=== PATIENT | female | born 1970 | race Caucasian/White ===

== ENCOUNTER → 2023-12-12 14:19 | Outpatient (REF) | payer OTHER, SELFPAY | LOC: REG 14:19 | PROVIDERS: ATTENDING PHYSICIAN Student in an Organized Health Care Education/Training Program | DX: J18.9 Pneumonia, unspecified organism (principal) | CPT/HCPCS: 71046 ==

== ENCOUNTER → 2024-04-22 16:42 | Outpatient (REF) | payer OTHER, SELFPAY | LOC: WDC 16:42 | PROVIDERS: ATTENDING PHYSICIAN Nurse Practitioner Family; FAMILY PHYSICIAN Student in an Organized Health Care Education/Training Program | DX: Z12.31 Encounter for screening mammogram for malignant neoplasm of breast (principal) | CPT/HCPCS: 77063; 77067 ==

== ENCOUNTER 2024-07-03 15:43 | Emergency (ER) | payer OTHER, SELFPAY ==
[2024-07-03 15:46] VITALS: BP 173/108
--- NOTE | 2024-07-03 15:46 | ED.GENMED ---
ED Provider Triage
<Pat Blake PA-C - Last Filed: 07/03/24 15:55>
-
Patient seen by provider in Triage?: Seen in Triage
Attestation: A medical screening examination has been initiated by a qualified medical provider. Based on the assessment performed at this time, it has been determined that an emergent medical condition may exist and the patient has been informed
that further medical evaluation and possible additional diagnostic testing may be needed.
HPI: 53yoF here with elevated BP reading at home. Usually takes losartan only as needed. Has not taken her BP meds in 8 months. 165/95 at work today. C/o MURO. Called PCP today who told her to go to the ED. No CP/SOB.
GENERAL: Alert , in no apparent distress
EYE: No visual abnormalities.
NECK: Trachea midline
ENT: No visible abnormalities.
LUNGS: No acute respiratory distress
NEUROLOGICAL: Alert and oriented
SKIN: Skin intact. No visible changes.
MUSCULOSKELETAL: Moving extremities normally
PSYCH: Normal and appropriate interaction.
This is a medical evaluation conducted in person to initiate diagnostic evaluation and provide initial therapeutics. Please see further documentation by the treating clinician.
BP 173/108 in triage. Patient refusing blood work stating she is only here for a medication refill. Will order dose of home medication.
History of Present Illness
<Pat Blake PA-C - Last Filed: 07/03/24 15:55>
General
Chief Complaint: Prescription Refill
Time Seen by Provider: 07/03/24 16:44
<JULITA Whitten - Last Filed: 07/03/24 18:20>
General
Source: patient
Exam Limitations: none
Nursing documentation reviewed up to this point in time: agreed with
History of Present Illness
History of Present Illness:
53 yr old female presents to the ED for evaluation. Patient has a history of high blood pressure however has not taken her blood pressure medication in 8 months. Previously she was prescribed losartan 12.5 mg however over the past several days she
has had high blood pressure (she checked herself ) and headache. She called her family doctor did a refill but they would not see her because she complained of a headache and they recommended she come to the ER. She has felt slightly dizzy with a
headache. She denies any chest pain shortness of breath. She did have 2 tablets of losartan and 1 on Sunday 1 on Sunday.
Patient was given losartan 12.5 mg prior to my exam.
Past History
<Pat Blake PA-C - Last Filed: 07/03/24 15:55>
Past History
ED Past Medical History: HTN, Other (Breast cancer) and Other (Breast cancer status post recent lumpectomy, ovarian cysts)
ED Past Surgical History: Other (Lumpectomy, double hernia surgery, LEEP)
Social History
Tobacco: Non-smoker
Alcohol: None
Personal:
Living: with family
Employment: Employed
Family History
Family History: Negative Diabetes, Hypertension or CAD
Review of Systems
<JULITA Whitten - Last Filed: 07/03/24 18:20>
Review of Systems
Allergies reviewed?: Yes
All Other Systems: ROS reviewed and negative except as documented in HPI and ROS
Constitutional: Reports no symptoms
Respiratory: Reports no symptoms
Cardiac: Reports no symptoms
ABD/GI: Reports no symptoms; Denies nausea or vomiting
Musculoskeletal: Reports no symptoms
Skin: Reports no symptoms
Neurological: Reports headache
Psychiatric: Reports no symptoms
Phy Exam
<JULITA Whitten - Last Filed: 07/03/24 18:20>
General Physical Exam
General Presentation: no apparent distress
General age: appears stated age
General Skin: warm and dry
General Habitus: normal
General Mental: alert
General Hydration: appears well hydrated
Eye Exam
Eye Exam: PERRL and EOMI
Cardiovascular Exam
Cardiovascular Exam: regular rate/rhythm, no murmur and normal peripheral pulses
Pulmonary Exam
Pulmonary Exam: lungs clear and no respiratory distress
Neurological Exam
Neurological Exam: alert and oriented x3
Musculoskeletal Exam
Musculoskeletal Exam: full ROM
Skin Exam
Skin Exam: normal color and warm/dry
Psychiatric Exam
Psychiatric Exam: normal mood/affect
Course
<Pat Blake PA-C - Last Filed: 07/03/24 15:55>
Orders/Labs/Results
Orders:
Orders
07/03/24 15:51
Losartan [Cozaar] 12.5 mg PO NOW STA
07/03/24 17:24
CT Head W/o Iv Contrast Urgent
Comment:
Reason For Exam: headache /elevated blood pressure
Vital Signs
Initial and Last Documented VS:
Initial Vital Signs
Temp Pulse Resp BP Pulse Ox
98.2 F 73 18 173/108 100
07/03/24 15:46 07/03/24 15:46 07/03/24 15:46 07/03/24 15:46 07/03/24 15:46
Last Documented Vital Signs
Temp Pulse Resp BP Pulse Ox
98.2 F 67 18 177/101 99
07/03/24 15:46 07/03/24 16:28 07/03/24 16:28 07/03/24 16:28 07/03/24 16:28
<JULITA Whitten - Last Filed: 07/03/24 18:20>
Orders/Labs/Results
Orders:
Orders
07/03/24 15:51
Losartan [Cozaar] 12.5 mg PO NOW STA
07/03/24 17:24
CT Head W/o Iv Contrast Urgent
Comment:
Reason For Exam: headache /elevated blood pressure
Vital Signs
Initial and Last Documented VS:
Initial Vital Signs
Temp Pulse Resp BP Pulse Ox
98.2 F 73 18 173/108 100
07/03/24 15:46 07/03/24 15:46 07/03/24 15:46 07/03/24 15:46 07/03/24 15:46
Last Documented Vital Signs
Temp Pulse Resp BP Pulse Ox
98.2 F 67 18 177/101 99
07/03/24 15:46 07/03/24 16:28 07/03/24 16:28 07/03/24 16:28 07/03/24 16:28
<JULITA Whitten - Last Filed: 07/03/24 18:20>
MDM/Problems Addressed
Differential Diagnosis Includes:
not limited to: htn less likely intracranial hemorrhage, headache
MDM/Problems Addressed:
Patient is a 53-year-old female that was sent to the ER for evaluation. Patient has a history of high blood pressure however has not taken her losartan in the past 8 months. Over the past several days her blood pressures been high. She took a
dose Sunday and Sunday called her primary care physician and requested a prescription/refill for her losartan but because she complained of a headache they sent her here to the ER.
She has had a headache for the past several days with elevated blood pressure. She denies any chest pain shortness of breath. She is nontoxic with a normal neurologic exam.
I did speak with the nurse at her primary care office who sent her in.
Patient declines blood work I did recommend checking her blood work for her renal function but she reports she just had blood work done at the end of April which was normal. I did however recommend CAT scan with high blood pressure and headache
she was agreeable for this and CAT scan is negative. Repeat blood pressure 144/99 will DC with a prescription for losartan. I did discuss with patient however the importance of calling her primary care physician to get an appointment for the neck
several days for reevaluation of blood pressure and continued follow-up management.
Chronic conditions affecting care:
htn, pt not compliant.
<JULITA Whitten - Last Filed: 07/03/24 18:20>
*Radiology
Radiology exam reviewed: radiology read reviewed
*Pulse Oximetry
Patient hypoxic: no
*Critical Care Note
Total Time (30-74mins, 75-104mins- exclusive of procedures): Not Applicable
ED Attending Note
<Pat Blake PA-C - Last Filed: 07/03/24 15:55>
-
Portions of this chart may have been created with voice recognition software.� Occasional wrong word or��sound alike� substitutions may have occurred due to the inherent limitations of voice recognition software.
Discharge Plan
Departure
Patient Disposition: Home (Routine Discharge)
Date of Disposition: 07/03/24
Time of Disposition: 18:17
Patient with high blood pressure during this ER visit?: Yes
Condition: Fair
Covid-19: Not Applicable
Discharge Problem:
Headache, Elevated blood pressure reading
Instructions: Headache, Adult ED, BLOOD PRESSURE
Prescriptions:
New
losartan 25 mg tablet
12.5 mg PO DAILY Qty: 30 0RF
No Action
multivitamin [Daily Multiple] 1 EACH tablet
1 ea PO Daily
losartan 25 MG tablet
12.5 mg PO DAILY
rabies vacc,human diploid (PF) [Imovax Rabies Vaccine (PF)] 1 ML recon soln
1 ml IM . DIRECTED Qty: 1 0RF
Rx Instructions:
See Rabies Vaccine Post Exposure Prophylaxis Instruction Sheet for Dosing Instructions
Referrals:
Greg Harrell DO [Family Provider] -
Activity Restrictions/Additional Instructions:
As discussed your CAT scan was negative. A prescription for losartan was sent to your pharmacy take as directed. Please call your family doctor tomorrow to make an appointment in extremities for reevaluation of your symptoms and treatment of your
blood pressure. Return if any worsening of symptoms.
Interventions
Interventions:
*Risk Screen - Suicide Last Done: 07/03/24 15:46
*General Assessment Last Done: 07/03/24 15:46
*Neglect/Abuse Screening Last Done: 07/03/24 15:46
*ED COVID-19 Vaccine History Last Done: 07/03/24 15:46
Discharge Date and Time
Print Language: KYRGYZ
[2024-07-03] MEDS: COZAAR 12.5 MG PO (15:55)
[2024-07-03 16:28] VITALS: BP 177/101
[2024-07-03 19:00] VITALS: BP 144/99
== END 2024-07-03 19:01 | disposition home or self-care (01) ==
LOC: EMR 15:43
PROVIDERS: EMERGENCY PHYSICIAN Emergency Medicine; FAMILY PHYSICIAN Family Medicine
DX: R51.9 Headache, unspecified (principal); R42 Dizziness and giddiness; I10 Essential (primary) hypertension; Z91.148 Patient's other noncompliance with medication regimen for other reason; Z85.3 Personal history of malignant neoplasm of breast; Z91.040 Latex allergy status
CPT/HCPCS: 99284; 70450

== ENCOUNTER → 2024-09-30 15:56 | Outpatient (REF) | payer OTHER, SELFPAY | LOC: RCS 15:56 | PROVIDERS: ATTENDING PHYSICIAN Nurse Practitioner Family | DX: I10 Essential (primary) hypertension (principal) | CPT/HCPCS: 93306 ==

== ENCOUNTER 2024-12-17 06:21 | Outpatient (RCR) | payer OTHER, SELFPAY | END 2024-12-17 23:59 | disposition home or self-care (01) | LOC: RPT 06:21 | PROVIDERS: ATTENDING PHYSICIAN Nurse Practitioner Family | DX: R20.2 Paresthesia of skin (principal); M54.12 Radiculopathy, cervical region; Z73.6 Limitation of activities due to disability; M62.81 Muscle weakness (generalized) | CPT/HCPCS: 97110; 97162; 97535 ==

== ENCOUNTER 2025-01-14 18:19 | Outpatient (RCR) | payer OTHER, SELFPAY | END 2025-01-14 23:59 | disposition home or self-care (01) | LOC: RPT 18:19 | PROVIDERS: ATTENDING PHYSICIAN Nurse Practitioner Family | DX: R20.2 Paresthesia of skin (principal); M54.12 Radiculopathy, cervical region; Z73.6 Limitation of activities due to disability; M62.81 Muscle weakness (generalized) | CPT/HCPCS: 97010; 97110; 97140; 97535 ==

== ENCOUNTER → 2025-02-05 13:13 | Outpatient (REF) | payer OTHER, SELFPAY | LOC: HWRAD 13:13 | PROVIDERS: ATTENDING PHYSICIAN Nurse Practitioner Family | DX: R10.819 Abdominal tenderness, unspecified site (principal); R10.2 Pelvic and perineal pain | CPT/HCPCS: 76705; 76830; 76856 ==

== ENCOUNTER 2025-03-06 06:18 | Day surgery (SDC) | payer OTHER, SELFPAY | END 2025-03-06 09:18 | disposition home or self-care (01) | LOC: GI 06:18 | PROVIDERS: ATTENDING PHYSICIAN Internal Medicine | DX: Z12.11 Encounter for screening for malignant neoplasm of colon (principal); K63.5 Polyp of colon; K64.9 Unspecified hemorrhoids; Z86.0100 Personal history of colon polyps, unspecified | CPT/HCPCS: 45380; 88305 ==

== ENCOUNTER → 2025-04-23 17:17 | Outpatient (REF) | payer OTHER, SELFPAY | LOC: WDC 17:17 | PROVIDERS: ATTENDING PHYSICIAN Nurse Practitioner Family | DX: Z12.31 Encounter for screening mammogram for malignant neoplasm of breast (principal) | CPT/HCPCS: 77063; 77067 ==

== ENCOUNTER → 2025-05-15 08:58 | Outpatient (REF) | payer OTHER, SELFPAY | LOC: WDC 08:58 | PROVIDERS: ATTENDING PHYSICIAN Nurse Practitioner Family | DX: R92.333 Mammographic heterogeneous density, bilateral breasts (principal) | CPT/HCPCS: 76641 ==

== ENCOUNTER 2025-08-10 09:58 | Emergency (ER) | payer OTHER, SELFPAY ==
[2025-08-10 10:19] VITALS: BP 120/94
[2025-08-10 10:35] VITALS: BMI 21.9
[2025-08-10] MEDS: NSS 1000 IV (11:00)
[2025-08-10] MEDS: TORADOL 15 MG IV (11:01)
[2025-08-10] MEDS: PEPCID 20 MG IV (11:01)
[2025-08-10 11:02] LABS: Hematocrit 43.0 % (37.0-47.0); Hemoglobin 15.2 g/dL (12.0-16.0); Mean Corp Hgb Conc. 35.3 g/dL (33.0-37.0); Mean Corpuscular Volume 93.5 fL (81.0-99.0); Nucleated Red Blood Cells % 0 %; Platelet Count 237 10^3/uL (130-400); Red Cell Dist. Width 12.4 % (11.5-14.5)
[2025-08-10 11:13] LABS: ALT (SGPT) 22 U/L (0-35); AST (SGOT) 27 U/L (14-36); Albumin 4.5 g/dl (3.5-5.0); Alkaline Phosphatase 85 U/L (38-126); Blood Urea Nitrogen 12 mg/dl (7-17); Calcium 9.6 mg/dl (8.4-10.2); Carbon Dioxide 27 mmol/L (22-30); Chloride 107 mmol/L (98-107); Estimated Creatinine Clearance 67 ml/min; Glucose 86 mg/dl (70-99); Lipase 102 U/L (23-300); Potassium 4.3 mmol/L (3.5-5.1); Sodium 137 mmol/L (135-145); Total Protein 7.3 g/dl (6.3-8.2); eGFR > 60.00
--- NOTE | 2025-08-10 12:38 | ED.GENMED ---
History of Present Illness
General
Chief Complaint: Abdominal Symptoms
Time Seen by Provider: 08/10/25 10:32
Nursing documentation reviewed up to this point in time: agreed with
History of Present Illness
History of Present Illness:
55-year-old female presents to the ER for further evaluation of pelvic discomfort which has been present for the last month. Patient states that she experienced this similar pain in the spring and it resolved spontaneously. She describes it as a
burning discomfort across her lower abdomen. It is not something that is reproducible with movement or activity or palpation. She denies any change in diet. She denies any change in bowel habits. She did experience a urinary tract infection
earlier this month with expected symptoms-dysuria and urinary frequency. This resolved with treatment. Patient denies flank pain or low back pain. 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 Patient reports that
over the past 2 days she is now experiencing burning in her upper abdomen along with some mild nausea prompting her to come to the ER. She had previously been given prescription gabapentin and tramadol but has not taken any of these medications for
her symptoms. She has not taken any hejg-ybm-slzlmyd remedies today either, she states that she occasionally uses ibuprofen for the lower pelvic pain which seems to help. She denies peripheral edema. No rash. No chest pain. No fevers or chills.
No cough or cold symptoms. She does have a prior history of abdominal surgery for uterine fibroid, and an inguinal hernia repair, none recently. She did have a pelvic ultrasound earlier this year which was unremarkable. She is scheduled to have
a pelvic MRI next month
Past History
Past History
ED Past Medical History: HTN, Other (Breast cancer) and Other (Breast cancer status post recent lumpectomy, ovarian cysts)
ED Past Surgical History: Other (Lumpectomy, double hernia surgery, LEEP)
Social History
Tobacco: Non-smoker
Alcohol: None
Personal:
Living: with family
Employment: Employed
Family History
Family History: Negative Diabetes, Hypertension or CAD
Review of Systems
Review of Systems
Allergies reviewed?: Yes
Phy Exam
Physical Exam
Physical Exam:
Patient is awake, alert, appears in no acute distress, head is NCAT, PERRL, EOMI mucous membranes moist, conjunctiva pink, heart regular rate and rhythm without murmurs or ectopy, lungs are clear to auscultation without wheezes rales or rhonchi, no
JVD, abdomen is soft and nontender on palpation,no CVA tenderness, no hernias extremities without edema, GCS is 15
Course
Orders/Labs/Results
Orders:
Orders
08/10/25 10:43
IV Insert/Care/Rem.- Treatment PRN
0.9% Sodium Chloride 1000 ml [Nss] 1,000 ml IV BOLUS
Famotidine [Pepcid] 20 mg IV NOW STA
Ketorolac [Toradol] 15 mg IV NOW STA
08/10/25 10:44
CT Abd/Pel (IV only)-DH only Urgent
Comment:
Reason For Exam: pelvic pain x1 mo, now epigastric pain too
Test Result ONCE
08/10/25 10:53
Complete Blood Count/With Diff Urgent
Comprehensive Metabolic Panel Urgent
Lipase Urgent
08/10/25 13:18
HCG, Urine Qualitative Screen Urgent
Date Specimen was Collected: 08/10/25
Time Specimen was Collected: 13:12
Urinalysis Reflex To Culture Urgent
Date Specimen was Collected: 08/10/25
Time Specimen was Collected: 13:12
Abnormal Lab Results
08/10/25
10:53
MCH 33.0 H pg
(27.0-31.0)
08/10/25 10:53
08/10/25 10:53
CBC normal, very reassuring. Electrolytes within normal limits
Vital Signs
Initial and Last Documented VS:
Initial Vital Signs
Temp Pulse Resp BP Pulse Ox
98.0 F 77 16 120/94 98
08/10/25 10:19 08/10/25 10:19 08/10/25 10:19 08/10/25 10:19 08/10/25 10:19
Last Documented Vital Signs
Temp Pulse Resp BP Pulse Ox
98.0 F 71 15 152/90 99
08/10/25 10:19 08/10/25 13:18 08/10/25 13:18 08/10/25 13:18 08/10/25 13:00
MDM/Problems Addressed
Differential Diagnosis Includes:
Differential diagnosis to consider but not limited to pelvic congestion syndrome, IBS, radicular pain, gastritis, GERD along with other etiologies considered
Chronic conditions affecting care:
Hypertension
*Radiology
Radiology exam reviewed: radiology read reviewed (I reviewed radiology interpretation with Dr. Márquez, radiologist-mild rectosigmoid colitis)
*Pulse Oximetry
SaO2: 100
Oxygen Mode of Delivery: Room air
Patient hypoxic: no
*Critical Care Note
Total Time (30-74mins, 75-104mins- exclusive of procedures): Not Applicable
Update Note
Update Note:
Lightest I discussed with patient all reassuring labs. We also discussed CT findings concerning for mild rectosigmoid colitis. She had complete symptomatic relief with Toradol and Pepcid administered here in the ER. I discussed with patient use
of high-dose ibuprofen for the next few days in addition to antibiotics and Pepcid. Patient expressed understanding of medication usage and feels comfortable with plan for discharge. She has no questions at the current time
ED Attending Note
-
Portions of this chart may have been created with voice recognition software.� Occasional wrong word or��sound alike� substitutions may have occurred due to the inherent limitations of voice recognition software.
Discharge Plan
Departure
Patient Disposition: Home (Routine Discharge)
Date of Disposition: 08/10/25
Time of Disposition: 13:44
Patient with high blood pressure during this ER visit?: Yes
Discharge Problem:
Colitis, Abdominal pain
Instructions: Colitis (DC), Abdominal Pain, BLOOD PRESSURE
Prescriptions:
New
amoxicillin-pot clavulanate 875-125 mg tablet
1 tab PO BID Qty: 14 0RF
ibuprofen 600 mg tablet
600 mg PO Q8H PRN (Reason: Pain) Qty: 20 0RF
No Action
multivitamin [Daily Multiple] 1 EACH tablet
1 ea PO Daily
losartan 25 MG tablet
12.5 mg PO DAILY
losartan 25 mg tablet
12.5 mg PO DAILY Qty: 30 0RF
Referrals:
Mayela Brown CRNP [Family Provider, Family Practice]
Activity Restrictions/Additional Instructions:
Encourage fluids. Please use [id number]-[id number] Pepcid daily until seen in follow-up by your primary care physician-Please make appointment for reevaluation in 1 week. Complete course of antibiotics as prescribed. Try using ibuprofen 3 times daily
for the next 3 days to help with your ongoing pelvic pain. Return to the ER for any concerns
Interventions
Interventions:
*Risk Screen - Suicide Last Done: 08/10/25 10:19
*General Assessment Last Done: 08/10/25 10:19
*Neglect/Abuse Screening Last Done: 08/10/25 10:19
*ED- Fall Risk Assessment Last Done: 08/10/25 10:34
*ED COVID-19 Vaccine History Last Done: 08/10/25 10:34
*ED Influenza Vaccine History Last Done: 08/10/25 10:34
TJ-Awvvou-Tdiqnfznlq Assessment Last Done: 08/10/25 10:36
Discharge Date and Time
Print Language: DANISH
[2025-08-10 13:18] VITALS: BP 152/90
[2025-08-10 13:41] LABS: Urine Character Clear (Clear)
[2025-08-10 13:44] LABS: HCG, Urine Qualitative Screen Negative
[2025-08-10 14:38] LABS: Urine Red Blood Cell 0-2 /HPF (0-2); Urine Squamous Cell 0-2 /LPF (Few); Urine White Cell 0-2 /HPF (0-5)
== END 2025-08-10 13:58 | disposition home or self-care (01) ==
LOC: EMR 09:58
PROVIDERS: EMERGENCY PHYSICIAN Emergency Medicine; FAMILY PHYSICIAN Nurse Practitioner Family
DX: K52.9 Noninfective gastroenteritis and colitis, unspecified (principal); I10 Essential (primary) hypertension; Z85.3 Personal history of malignant neoplasm of breast
CPT/HCPCS: 99284; 96374; 96375; 96361; 74177; 80053; 81003; 81015; 81025; 83690; 85025; Q9967

== ENCOUNTER → 2025-08-24 18:00 | Outpatient (REF) | payer OTHER, SELFPAY | LOC: MRI 18:00 | PROVIDERS: ATTENDING PHYSICIAN Nurse Practitioner Family | DX: R10.20 Pelvic and perineal pain unspecified side (principal) | CPT/HCPCS: 72197; A9575 ==

== ENCOUNTER 2025-09-07 09:13 | Emergency (ER) | payer OTHER, SELFPAY ==
[2025-09-07 09:16] VITALS: BP 131/93
[2025-09-07 09:58] VITALS: BMI 23.7
--- NOTE | 2025-09-07 10:09 | ED.GENMED ---
History of Present Illness
General
Chief Complaint: Abdominal Pain
Time Seen by Provider: 09/07/25 09:39
History of Present Illness
History of Present Illness:
55-year-old female with past medical history of hypertension presenting to the emergency department for upper abdominal pain. Patient notes that the pain is all in the upper region of her abdomen. Notes she was seen in the hospital in July,
about 1 month ago. However at that time her symptoms were all lower. She had a CT abdomen and pelvis without significant abnormality, and then had a pelvis MRI that was unremarkable. For the past 3 to 4 weeks, has been having upper abdominal
pain. She saw her primary care doctor, was started on pantoprazole about 5 days ago. She also called a GI doctor and is scheduled for endoscopy, however not till December. She has been practicing a bland diet. Reports surgical history of hernia
repair and young age. Denies fever, nausea, vomiting. Does note that she feels like her pain is worse after certain foods, however also when she does not eat. She denies additional acute medical complaints
Past History
Past History
ED Past Medical History: HTN, Other (Breast cancer) and Other (Breast cancer status post recent lumpectomy, ovarian cysts)
ED Past Surgical History: Other (Lumpectomy, double hernia surgery, LEEP)
Social History
Tobacco: Non-smoker
Alcohol: None
Personal:
Living: with family
Employment: Employed
Family History
Family History: Negative Diabetes, Hypertension or CAD
Phy Exam
Physical Exam
Physical Exam:
General: Well-appearing, no clinical signs of dehydration, nontoxic and in no acute distress
HEENT: protecting airway
Neck: appears supple
CV: Normal heart rate, regular rhythm
Resp: No accessory muscle use, no increased work of breathing
Abd: No distention. Focal tenderness to the epigastric and right upper quadrant abdomen without rebound or guarding
Extremities: No deformities, no swelling
Neuro: alert, no focal neurologic deficit
: deferred
Rectal: deferred
Psych: Normal affect
Skin: Intact
Course
Orders/Labs/Results
Orders:
Orders
09/07/25 09:59
US Abdomen Complete/Upper Urgent
Comment:
Reason For Exam: RUQ pain and epigastric pain
09/07/25 10:03
Complete Blood Count/With Diff Urgent
Comprehensive Metabolic Panel Urgent
Lipase Urgent
09/07/25 10:22
Electrocardiogram (*1) Urgent
Reason for Study: Abdominal Pain
EKG- Treatment ONCE
0.9% Sodium Chloride 1000 ml [Nss] 1,000 ml IV BOLUS
Pantoprazole [Protonix IV] 40 mg IV NOW STA
Abnormal Lab Results
09/07/25
10:03
MCH 32.6 H pg
(27.0-31.0)
09/07/25 10:03
09/07/25 10:03
Vital Signs
Initial and Last Documented VS:
Initial Vital Signs
Temp Pulse Resp BP Pulse Ox
98.0 F 80 16 131/93 99
09/07/25 09:16 09/07/25 09:16 09/07/25 09:16 09/07/25 09:16 09/07/25 09:16
Last Documented Vital Signs
Temp Pulse Resp BP Pulse Ox
98.0 F 80 16 131/93 99
09/07/25 09:16 09/07/25 09:16 09/07/25 09:16 09/07/25 09:16 09/07/25 10:12
MDM/Problems Addressed
MDM/Problems Addressed:
55-year-old female presenting for upper abdominal pain for 3 to 4 weeks. Vital signs on arrival are normal.
On exam patient is in no acute distress, resting comfortably, nontoxic. Focal tenderness to the upper abdomen without rebound or guarding. Patient's symptoms appear most consistent with GERD/gastritis. Notes that symptoms are worse with certain
foods, with pain localized to the epigastric abdomen. Pancreatitis is a consideration, as well as cholelithiasis versus cholecystitis. For this reason we will obtain laboratory analysis and right upper quadrant ultrasound imaging.
12:40 -patient's labs are unremarkable. Normal lipase and liver function panel. Right upper quadrant ultrasound without any acute pathology. Continue to suspect gastritis as etiology of patient's symptoms. Advised that she continue the
pantoprazole, as well as plan for outpatient GI follow-up. Advised that she continue to adhere to a bland diet. Return precautions discussed and patient verbalized understanding
*Pulse Oximetry
SaO2: 99
Oxygen Mode of Delivery: Room air
Patient hypoxic: no
*EKG
Interpreted by ED Provider?: Yes
EKG Intrepretation Date: 09/07/25
EKG Intrepretation Time: 12:53
Interpretation: normal
Heart Rate: 75
Rate: normal
Rhythm: sinus
[place]: normal axis
Interval: normal interval
QRS Pattern: normal QRS
Ischemia: no ischemia
*Critical Care Note
Total Time (30-74mins, 75-104mins- exclusive of procedures): Not Applicable
ED Attending Note
-
Portions of this chart may have been created with voice recognition software.� Occasional wrong word or��sound alike� substitutions may have occurred due to the inherent limitations of voice recognition software.
Discharge Plan
Departure
Patient Disposition: Home (Routine Discharge)
Date of Disposition: 09/07/25
Time of Disposition: 12:52
Patient with high blood pressure during this ER visit?: No
Condition: Good
Discharge Problem:
Gastritis
Instructions: Gastritis (DC), [place] diet
Prescriptions:
No Action
multivitamin [Daily Multiple] 1 EACH tablet
1 ea PO Daily
losartan 25 MG tablet
12.5 mg PO DAILY
losartan 25 mg tablet
12.5 mg PO DAILY Qty: 30 0RF
amoxicillin-pot clavulanate 875-125 mg tablet
1 tab PO BID Qty: 14 0RF
ibuprofen 600 mg tablet
600 mg PO Q8H PRN (Reason: Pain) Qty: 20 0RF
Referrals:
Mayela Brown CRNP [Family Provider, Family Practice]
Activity Restrictions/Additional Instructions:
You were seen in the emergency department for upper abdominal discomfort
You were found to have reassuring laboratory analysis, EKG, ultrasound imaging. We suspect inflammation to your stomach. We recommend continuation of the pantoprazole and follow-up with a gastrointestinal doctor.
Please follow-up closely with your primary care physician.
Return to the emergency department for any worsening of your symptoms, or any development of chest pain, difficulty breathing, abdominal pain with persistent vomiting and inability to tolerate food or liquid by mouth (concern for dehydration),
weakness, headache or confusion, fever greater than 100.4, or any additional symptoms that are concerning to you.
Thank you for choosing [facility].
Interventions
Interventions:
*General Assessment Last Done: 09/07/25 12:01
*Neglect/Abuse Screening Last Done: 09/07/25 12:01
*ED COVID-19 Vaccine History Last Done: 09/07/25 09:58
*ED Influenza Vaccine History Last Done: 09/07/25 09:58
[facility] Risk Assessment Tool Last Done: 09/07/25 09:58
*Risk Screen - Suicide (C-SSRS) Last Done: 09/07/25 12:01
TN-Gmltog-Myqpgdgnty Assessment Last Done: 09/07/25 09:58
Discharge Date and Time
Print Language: PERSIAN
[2025-09-07 10:21] LABS: Hematocrit 41.2 % (37.0-47.0); Hemoglobin 14.2 g/dL (12.0-16.0); Mean Corp Hgb Conc. 34.5 g/dL (33.0-37.0); Mean Corpuscular Volume 94.5 fL (81.0-99.0); Nucleated Red Blood Cells % 0 %; Platelet Count 225 10^3/uL (130-400); Red Cell Dist. Width 12.2 % (11.5-14.5)
[2025-09-07 10:38] LABS: ALT (SGPT) 17 U/L (0-35); AST (SGOT) 25 U/L (14-36); Albumin 4.4 g/dl (3.5-5.0); Alkaline Phosphatase 92 U/L (38-126); Blood Urea Nitrogen 13 mg/dl (7-17); Calcium 9.3 mg/dl (8.4-10.2); Carbon Dioxide 29 mmol/L (22-30); Chloride 104 mmol/L (98-107); Estimated Creatinine Clearance 67 ml/min; Glucose 90 mg/dl (70-99); Lipase 104 U/L (23-300); Potassium 4.5 mmol/L (3.5-5.1); Sodium 138 mmol/L (135-145); Total Protein 7.0 g/dl (6.3-8.2); eGFR > 60.00
[2025-09-07] MEDS: NSS 1000 IV (10:45)
[2025-09-07] MEDS: PROTONIX IV 40 MG IV (10:48)
== END 2025-09-07 13:11 | disposition home or self-care (01) ==
LOC: EMR 09:13
PROVIDERS: EMERGENCY PHYSICIAN Student in an Organized Health Care Education/Training Program; FAMILY PHYSICIAN Nurse Practitioner Family
DX: K29.70 Gastritis, unspecified, without bleeding (principal); I10 Essential (primary) hypertension; Z85.3 Personal history of malignant neoplasm of breast
CPT/HCPCS: 96374; 96361; 99284; 76700; 80053; 83690; 85025; 93005

== ENCOUNTER 2025-09-10 06:30 | Day surgery (SDC) | payer OTHER, SELFPAY | END 2025-09-10 16:36 | disposition home or self-care (01) | LOC: GI 06:30 | PROVIDERS: ATTENDING PHYSICIAN Internal Medicine; FAMILY PHYSICIAN Nurse Practitioner Family | DX: R10.13 Epigastric pain (principal); R93.3 Abnormal findings on diagnostic imaging of other parts of digestive tract; R10.9 Unspecified abdominal pain; K62.89 Other specified diseases of anus and rectum; K29.50 Unspecified chronic gastritis without bleeding | CPT/HCPCS: 43239; 45331; 88305; 88342 ==